=== PATIENT | male | born 1970 | race Hispanic/Latino ===

== ENCOUNTER 2024-02-02 22:45 | Inpatient (IN) | payer OTHER ==
[~2024-02-02] VITALS: Ht 165.1 cm; Wt 80.7 kg
[2024-02-03] VITALS (10 sets, daily range): BP systolic 109–137; BP diastolic 67–80; PULSE 69–87; RESP 16–20; TEMP 97.5–98.7; O2SAT 95–99
[2024-02-03] MEDS ORDERED: ALBUMIN (HUMAN) 25% 50 ML IV ONE (09:58)
[2024-02-03 10:57] LABS: HEMATOCRIT 46.8 % (42-54); MEAN CORPUSCULAR HEMOGLOBIN 29.8 pg (27.0-33.0); MEAN CORPUSCULAR VOLUME 87.8 fL (79-99); RED BLOOD CELL COUNT(AUTO) 5.33 MIL/uL (4.50-6.20); RED CELL DISTRIBUTION WIDTH 12.8 % (11.0-15.5); WHITE BLOOD COUNT (AUTO) 5.8 K/uL (4.8-10.8)
[2024-02-03 11:05] LABS: HEMOGLOBIN A1C 8.2 % (4.0-6.0)
[2024-02-03 11:12] LABS: ALBUMIN 3.7 g/dL (3.5-5.0); BILIRUBIN,TOTAL 0.4 mg/dL (0.2-1.0); CREATININE 0.8 mg/dL (0.5-1.3); POTASSIUM 4.2 mmol/L (3.5-5.1); TOTAL PROTEIN, SERUM 7.7 g/dL (6.0-8.3)
[2024-02-03 11:19] LABS: INR 1.02 (0.85-1.15)
[2024-02-03 11:20] LABS: PARTIAL THROMBOPLASTIN TIME 29.3 SEC (26.3-35.5)
[2024-02-03 11:40] LABS: ABG BASE EXCESS -0.2 mmol/L (-2.0-3.0); ABG HCO3 24.5 mmol/L (21.0-28.0); ABG OXYGEN SATURATION 95.4 % (94.0-98.0); ABG PCO2 40 mmHg (35-48); ABG PH 7.402 (7.350-7.450); PO2, ARTERIAL BG 76.7 mmHg (83.0-108.0); VENT MODE, BG RA (ROOM AIR)
[2024-02-03] MEDS ORDERED: acetaMINOPHEN 650 MG SUPPOSITORY RC PRN (12:30)
[2024-02-03] MEDS ORDERED: LACTULOSE 20 GM/30 ML UDCUP PO PRN (12:30)
[2024-02-03] MEDS ORDERED: LAbetaLOL 20MG SYG IV PRN (12:30)
[2024-02-03] MEDS ORDERED: ondanSETRON 4MG INJ IVP PRN (12:30)
[2024-02-03] MEDS ORDERED: hydrALAZine 20MG/ML VIAL IV PRN (12:30)
[2024-02-03] MEDS ORDERED: cloNIDine HCL 0.1 MG TABLET PO PRN (12:30)
[2024-02-03] MEDS: INSULIN humuLIN R 100 UNIT/ML 3ML SQ SCH (16:48)
[2024-02-03] MEDS: IpraTROPium 0.5 MG/2.5 ML INH IH SCH (18:33)
[2024-02-03] MEDS: metoPROLOL tartRATE 25 MG TAB PO SCH (20:38)
[2024-02-03] MEDS: atorVAStatin 40 MG TABLET PO SCH (20:38)
[2024-02-04] VITALS (73 sets, daily range): BP systolic 94–166; BP diastolic 36–89; PULSE 69–100; RESP 6–21; TEMP 97.3–99; O2SAT 96–99
[2024-02-04 03:43] LABS: MEAN CORPUSCULAR HEMOGLOBIN 29.7 pg (27.0-33.0); MEAN CORPUSCULAR HGB CONC 33.7 g/dL (32.0-36.0); MEAN CORPUSCULAR VOLUME 88.1 fL (79-99); RED BLOOD CELL COUNT(AUTO) 5.22 MIL/uL (4.50-6.20); RED CELL DISTRIBUTION WIDTH 12.6 % (11.0-15.5); WHITE BLOOD COUNT (AUTO) 7.8 K/uL (4.8-10.8)
[2024-02-04 03:56] LABS: MAGNESIUM 2.3 mg/dL (1.80-2.40); PHOSPHORUS 4.1 mg/dL (2.5-4.9); POTASSIUM 4.5 mmol/L (3.5-5.1)
[2024-02-04] MEDS ORDERED: aminoCAProic ACID 5,000MG VIAL 15,000 MG in 0.9% NACL 500ML IV.SOLN 420 ML IV PRN (07:00)
[2024-02-04] MEDS ORDERED: NOREPINEPHRIN 8MG/250ML NS 250 ML IV PRN ×2 (07:00→08:30)
[2024-02-04] MEDS ORDERED: EPINEPHrine PF 1MG (1:1,000) 10 MG in 0.9% NACL 250ML 240 ML IV PRN ×2 (07:00→08:00)
[2024-02-04] MEDS ORDERED: PAPAVERINE HCL 30 MG/ML 2ML VIAL ONE (07:17)
[2024-02-04] MEDS ORDERED: ceFAZolin SODIUM 1 GM VIAL ONE (07:17)
[2024-02-04] MEDS ORDERED: HEParin-NS 1,000 UNIT/500 ML 500 ML IV ONE (07:17)
[2024-02-04] MEDS ORDERED: NITROGLYCERIN 50MG/D5W 250ML 1 BOT ONE (07:23)
[2024-02-04] MEDS: 0.9%NACL 1000ML 1,000 ML IV ONE (07:49)
[2024-02-04] MEDS: ceFAZolin SODIUM 2 GM VIAL ONE (07:49)
[2024-02-04] MEDS ORDERED: 0.9%NACL 10ML VIAL IVP PRN (08:00)
[2024-02-04] MEDS ORDERED: morPHINE 2 MG SYG IV PRN (08:00)
[2024-02-04] MEDS ORDERED: DEXTROSE 50%-WATER 50 ML DISP.SYRIN IV PRN (08:00)
[2024-02-04] MEDS ORDERED: GLUCAGON 1MG KIT 1 MG ML IM PRN (08:00)
[2024-02-04] MEDS ORDERED: poTASSium PHOS 15 mMOL+NS250ML 250 ML IV PRN (08:00)
[2024-02-04] MEDS ORDERED: NOREPINEPHRINE BITARTRATE 8 MG in DEXTROSE 5%-WATER 250 ML IV PRN (08:00)
[2024-02-04] MEDS ORDERED: ALBUMIN (HUMAN) 5% 250 ML IV PRN (08:00)
[2024-02-04] MEDS ORDERED: acetaMINOPHEN 650 MG SUPPOSITORY RC PRN (08:00)
[2024-02-04] MEDS ORDERED: NITROGLYCERIN 50MG/D5W 250ML 250 BOT IV SCH (08:00)
[2024-02-04] MEDS ORDERED: acetaMINOPHEN 325 MG TAB PO PRN ×2 (08:00)
[2024-02-04] MEDS ORDERED: proPOFol 1000 MG/100 ML 100 ML IV PRN (08:00)
[2024-02-04] MEDS ORDERED: dexmedeTOMIDine 400MCG/NS100ML IV SCH (08:00)
[2024-02-04] MEDS ORDERED: traMADol HCL 50 MG TABLET PO PRN (08:00)
[2024-02-04] MEDS ORDERED: MAGNESIUM 2GM PREMIX 50ML 50 ML IV PRN (08:00)
[2024-02-04] MEDS ORDERED: 0.9% NACL 500ML IV.SOLN 500 ML IV SCH (08:00)
[2024-02-04] MEDS ORDERED: MAGNESIUM HYDROXIDE 30 ML/UDCUP PO PRN (08:00)
[2024-02-04] MEDS ORDERED: aminoCAProic ACID 5,000MG VIAL 15,000 MG in 0.9% NACL 250ML 250 ML IV SCH (08:00)
[2024-02-04] MEDS ORDERED: morPHINE 4 MG SYG IV PRN (08:00)
[2024-02-04] MEDS ORDERED: PROTamine SULFate 10 MG/ML 25ML VIAL IV ONE (08:18)
[2024-02-04] MEDS ORDERED: NOREPINEPHRINE BITARTRATE 1 MG/1 ML ML IV ONE (08:19)
[2024-02-04] MEDS ORDERED: EPINEPHrine PF 1MG (1:1,000) 1 MG/ML AMP ONE (08:19)
[2024-02-04] MEDS ORDERED: proPOFol 10 MG/ML 20ML VIAL IV ONE (08:19)
[2024-02-04] MEDS ORDERED: HEParin 10,000 UNIT/10ML (1,000 UNIT/ML) VIAL ONE ×2 (08:19→08:42)
[2024-02-04] MEDS ORDERED: FENTanyl CITRate PF 50 MCG/1 ML 20ML VIAL IJ ONE (08:19)
[2024-02-04] MEDS ORDERED: LIDOCAINE PF 100MG/5ML (2%) SYRINGE 5ML ONE (08:19)
[2024-02-04] MEDS ORDERED: GLYCOPYRROLATE 0.2 MG/ML 5 ML VIAL ONE (08:19)
[2024-02-04] MEDS ORDERED: SODIUM BICARB 50MEQ 50ML VIAL 200 ML ONE (08:19)
[2024-02-04] MEDS ORDERED: ketaMINE 50MG/ML SYRINGE 50 MG/ML DISP.SYRIN ONE ×2 (08:20→11:00)
[2024-02-04] MEDS ORDERED: rocuRONium bROMide 10MG/1ML 5ML VL ONE (08:20)
[2024-02-04] MEDS ORDERED: MIDAZOLAM HCL 1 MG/ML 2ML VIAL ONE ×2 (08:20→11:00)
[2024-02-04] MEDS: ceFAZolin SODIUM 2 GM VIAL IVPB ONE (08:35)
[2024-02-04] MEDS ORDERED: DELNIDO FORMULA 2 BAG IV ONE (08:43)
[2024-02-04] MEDS ORDERED: ENOXAPARIN SODIUM 40 MG/0.4 ML SYRINGE SQ SCH (09:00)
[2024-02-04] MEDS ORDERED: PANTOPrazole 40 MG TAB DR PO SCH (09:00)
[2024-02-04] MEDS ORDERED: LISINOPRIL 2.5 MG TABLET PO SCH (09:00)
[2024-02-04 09:23] LABS: ABG BASE EXCESS -3.8 mmol/L (-2.0-3.0); ABG OXYGEN SATURATION 99.3 % (94.0-98.0); ABG PCO2 43 mmHg (35-48); ABG PH 7.332 (7.350-7.450); CARBON MONOXIDE 0.6 % (0.5-1.5); DEVICE COMMENT 1; HHb 0.7
[2024-02-04 10:28] LABS: ABG BASE EXCESS -4.3 mmol/L (-2.0-3.0); ABG HCO3 20.6 mmol/L (21.0-28.0); ABG OXYGEN SATURATION 97.6 % (94.0-98.0); ABG PCO2 37 mmHg (35-48); ABG PH 7.361 (7.350-7.450); CARBON MONOXIDE 0.3 % (0.5-1.5); DEVICE COMMENT 2; HHb 2.4; PO2, ARTERIAL BG 113.6 mmHg (83.0-108.0)
[2024-02-04] MEDS ORDERED: AMIOdarone 150MG VIAL ONE (11:01)
[2024-02-04 11:08] LABS: ABG BASE EXCESS -1.4 mmol/L (-2.0-3.0); ABG HCO3 24.3 mmol/L (21.0-28.0); ABG OXYGEN SATURATION 98.6 % (94.0-98.0); ABG PCO2 45 mmHg (35-48); ABG PH 7.353 (7.350-7.450); CARBON MONOXIDE 0.2 % (0.5-1.5); DEVICE COMMENT 3; HHb 1.4; PO2, ARTERIAL BG 190.5 mmHg (83.0-108.0)
[2024-02-04 11:33] LABS: ABG BASE EXCESS -4.6 mmol/L (-2.0-3.0); ABG HCO3 21.9 mmol/L (21.0-28.0); ABG OXYGEN SATURATION 98.9 % (94.0-98.0); ABG PCO2 46 mmHg (35-48); ABG PH 7.296 (7.350-7.450); CARBON MONOXIDE 0.3 % (0.5-1.5); DEVICE COMMENT 4; HHb 1.1
[2024-02-04 12:25] LABS: ABG BASE EXCESS -1.8 mmol/L (-2.0-3.0); ABG HCO3 25.1 mmol/L (21.0-28.0); ABG OXYGEN SATURATION 98.3 % (94.0-98.0); ABG PCO2 52 mmHg (35-48); ABG PH 7.305 (7.350-7.450); CARBON MONOXIDE 0.6 % (0.5-1.5); HHb 1.7; PO2, ARTERIAL BG 180.3 mmHg (83.0-108.0); VENT MODE, BG SIMV-VC PS10 (ROOM AIR)
[2024-02-04] MEDS: SODIUM BICARB 50MEQ 50ML VIAL IV PRN (12:33)
[2024-02-04 12:34] LABS: HEMATOCRIT 36.9 % (42-54); MEAN CORPUSCULAR HEMOGLOBIN 30.3 pg (27.0-33.0); MEAN CORPUSCULAR HGB CONC 34.7 g/dL (32.0-36.0); MEAN CORPUSCULAR VOLUME 87.4 fL (79-99); RED BLOOD CELL COUNT(AUTO) 4.22 MIL/uL (4.50-6.20); RED CELL DISTRIBUTION WIDTH 12.9 % (11.0-15.5); WHITE BLOOD COUNT (AUTO) 16.9 K/uL (4.8-10.8)
[2024-02-04] MEDS: PoTASSium chloRIDE 20MEQ/100ML 100 ML IV PRN (12:34)
[2024-02-04] MEDS: ASPIRIN 81MG CHEW TAB PO SCH (12:42)
[2024-02-04] MEDS: FAMOTIDINE 20MG VIAL IV SCH (12:42)
[2024-02-04] MEDS: 0.9%NACL 1000ML 1,000 ML IV SCH (12:45)
[2024-02-04 12:46] LABS: INR 1.11 (0.85-1.15); PROTHROMBIN TIME 11.9 SEC (9.6-11.6)
[2024-02-04] MEDS: acetaMINOPHEN 1,000 MG/100 ML VIAL IV SCH (12:46)
[2024-02-04] MEDS: ASPIRIN 81MG CHEW TAB NG ONE (12:47)
[2024-02-04] MEDS: ceFAZolin SODIUM 2 GM VIAL IVPB SCH (12:47)
[2024-02-04] MEDS: ceFAZolin SODIUM 2 GM VIAL IVP SCH (13:00)
[2024-02-04] MEDS: INSULIN REGULAR, HUMAN 3ML 100 UNIT in 0.9%NACL 100ML 99 ML IV SCH (13:00)
[2024-02-04 13:13] LABS: MAGNESIUM 3.4 mg/dL (1.80-2.40); POTASSIUM 3.7 mmol/L (3.5-5.1)
[2024-02-04 13:30] LABS: ABG BASE EXCESS 0.1 mmol/L (-2.0-3.0); ABG HCO3 25.8 mmol/L (21.0-28.0); ABG OXYGEN SATURATION 98.7 % (94.0-98.0); ABG PCO2 46 mmHg (35-48); ABG PH 7.366 (7.350-7.450); CARBON MONOXIDE 0.4 % (0.5-1.5); HHb 1.3; PO2, ARTERIAL BG 277.7 mmHg (83.0-108.0); VENT MODE, BG SIMV-VC PS10 (ROOM AIR)
[2024-02-04 14:39] LABS: ABG BASE EXCESS -1.8 mmol/L (-2.0-3.0); ABG HCO3 24.1 mmol/L (21.0-28.0); ABG OXYGEN SATURATION 97.8 % (94.0-98.0); ABG PCO2 45 mmHg (35-48); ABG PH 7.347 (7.350-7.450); CARBON MONOXIDE 0.6 % (0.5-1.5); HHb 2.2; PO2, ARTERIAL BG 132.8 mmHg (83.0-108.0); VENT MODE, BG SIMV (ROOM AIR)
[2024-02-04 15:32] LABS: ABG BASE EXCESS 0.1 mmol/L (-2.0-3.0); ABG HCO3 25.9 mmol/L (21.0-28.0); ABG OXYGEN SATURATION 97.5 % (94.0-98.0); ABG PCO2 46 mmHg (35-48); ABG PH 7.366 (7.350-7.450); CARBON MONOXIDE 0.9 % (0.5-1.5); HHb 2.5; VENT MODE, BG SIMV (ROOM AIR)
[2024-02-04 15:35] LABS: ABG BASE EXCESS -0.6 mmol/L (-2.0-3.0); ABG HCO3 24.8 mmol/L (21.0-28.0); ABG OXYGEN SATURATION 97.7 % (94.0-98.0); ABG PCO2 44 mmHg (35-48); ABG PH 7.371 (7.350-7.450); CARBON MONOXIDE 0.7 % (0.5-1.5); HHb 2.3; VENT MODE, BG SIMV (ROOM AIR)
[2024-02-04 16:24] LABS: ABG BASE EXCESS -1.8 mmol/L (-2.0-3.0); ABG HCO3 23.1 mmol/L (21.0-28.0); ABG OXYGEN SATURATION 97.6 % (94.0-98.0); ABG PCO2 40 mmHg (35-48); CARBON MONOXIDE 0.7 % (0.5-1.5); CPAP, BG 5 cm H2O; DEVICE COMMENT ALINE; HHb 2.4; PO2, ARTERIAL BG 116.2 mmHg (83.0-108.0); VENT MODE, BG CPAP 5 (ROOM AIR)
[2024-02-04] MEDS: traMADol HCL 50 MG TABLET PO PRN (16:51)
[2024-02-04 17:37] LABS: ABG BASE EXCESS 0.8 mmol/L (-2.0-3.0); ABG HCO3 27.1 mmol/L (21.0-28.0); ABG OXYGEN SATURATION 96.6 % (94.0-98.0); ABG PCO2 50 mmHg (35-48); ABG PH 7.352 (7.350-7.450); CARBON MONOXIDE 0.4 % (0.5-1.5); HHb 3.4; PO2, ARTERIAL BG 96.5 mmHg (83.0-108.0); VENT MODE, BG CAFM (ROOM AIR)
[2024-02-04] MEDS: doCUSate SODIUM 100 MG CAP PO SCH (20:28)
[2024-02-04] MEDS: ondanSETRON 4MG INJ IV PRN (22:02)
[2024-02-04 23:16] LABS: ABG BASE EXCESS 0.5 mmol/L (-2.0-3.0); ABG HCO3 25.7 mmol/L (21.0-28.0); ABG OXYGEN SATURATION 96.9 % (94.0-98.0); ABG PCO2 43 mmHg (35-48); ABG PH 7.391 (7.350-7.450); CARBON MONOXIDE 0.8 % (0.5-1.5); HHb 3.1; PO2, ARTERIAL BG 96.2 mmHg (83.0-108.0); VENT MODE, BG AM,40 (ROOM AIR)
[2024-02-04] MEDS: IpraTROPium 0.5 MG/2.5 ML INH IH SCH (23:21)
[2024-02-05] VITALS (94 sets, daily range): BP systolic 86–155; BP diastolic 43–76; PULSE 79–95; RESP 12–35; TEMP 98.1–99.3; O2SAT 94–98
[2024-02-05] MEDS: CALCIUM GLUC 1GM 1 GM in 0.9%NACL 50ML 50 ML IV PRN (04:39)
[2024-02-05 04:44] LABS: HEMATOCRIT 37.4 % (42-54); MEAN CORPUSCULAR HEMOGLOBIN 29.7 pg (27.0-33.0); MEAN CORPUSCULAR HGB CONC 33.2 g/dL (32.0-36.0); MEAN CORPUSCULAR VOLUME 89.7 fL (79-99); RED BLOOD CELL COUNT(AUTO) 4.17 MIL/uL (4.50-6.20); RED CELL DISTRIBUTION WIDTH 13.2 % (11.0-15.5); WHITE BLOOD COUNT (AUTO) 13.8 K/uL (4.8-10.8)
[2024-02-05 04:49] LABS: CREATININE 0.8 mg/dL (0.5-1.3); MAGNESIUM 2.2 mg/dL (1.80-2.40); PHOSPHORUS 3.5 mg/dL (2.5-4.9); POTASSIUM 3.9 mmol/L (3.5-5.1)
[2024-02-05 04:50] LABS: INR 1.09 (0.85-1.15); PROTHROMBIN TIME 11.7 SEC (9.6-11.6)
[2024-02-05 04:51] LABS: PARTIAL THROMBOPLASTIN TIME 29.4 SEC (26.3-35.5)
[2024-02-05] MEDS: furoSEMIDE 20MG VIAL IV SCH (08:46)
[2024-02-05] MEDS: acetaMINOPHEN 1,000 MG/100 ML VIAL IV SCH (16:31)
[2024-02-05] MEDS: acetaMINOPHEN 1,000 MG/100 ML VIAL IV ONE (16:31)
[2024-02-06] VITALS (34 sets, daily range): BP systolic 88–160; BP diastolic 45–101; PULSE 83–99; RESP 15–21; TEMP 98.4–99.3; O2SAT 93–96
[2024-02-06 05:10] LABS: HEMATOCRIT 38.3 % (42-54); MEAN CORPUSCULAR HEMOGLOBIN 29.6 pg (27.0-33.0); MEAN CORPUSCULAR HGB CONC 32.9 g/dL (32.0-36.0); MEAN CORPUSCULAR VOLUME 90.1 fL (79-99); RED BLOOD CELL COUNT(AUTO) 4.25 MIL/uL (4.50-6.20); RED CELL DISTRIBUTION WIDTH 12.8 % (11.0-15.5); WHITE BLOOD COUNT (AUTO) 14.6 K/uL (4.8-10.8)
[2024-02-06 05:37] LABS: CREATININE 0.8 mg/dL (0.5-1.3); POTASSIUM 4.1 mmol/L (3.5-5.1)
[2024-02-06] MEDS: IpraTROPium 0.5 MG/2.5 ML INH IH ONE (06:24)
[2024-02-06] MEDS: INSULIN humuLIN R 100 UNIT/ML 3ML SQ SCH (07:06)
[2024-02-06] MEDS: furoSEMIDE 20 MG TABLET PO SCH (07:56)
[2024-02-06] MEDS: metoPROLOL tartRATE 25 MG TAB PO SCH (09:00)
[2024-02-06 11:25] LABS: COVID19 (SARS ANTIGEN RAPID) PRESUMPTIVE NEGATIVE (NEGATIVE)
[2024-02-06] MEDS: acetaMINOPHEN 325 MG TAB PO PRN (11:32)
[2024-02-06 11:33] LABS: INFLUENZA TYPE A Negative For Type A (NEGATIVE); INFLUENZA TYPE B Negative For Type B (NEGATIVE)
[2024-02-06] MEDS: ZOSYN 3.375GM +NS 50ML IV SCH (13:27)
[2024-02-07] VITALS (19 sets, daily range): BP systolic 96–125; BP diastolic 59–76; PULSE 80–100; RESP 18–20; TEMP 98.2–99.2; O2SAT 95–98
[2024-02-07 03:45] LABS: HEMATOCRIT 37.2 % (42-54); MEAN CORPUSCULAR HEMOGLOBIN 29.5 pg (27.0-33.0); MEAN CORPUSCULAR HGB CONC 33.3 g/dL (32.0-36.0); MEAN CORPUSCULAR VOLUME 88.6 fL (79-99); RED BLOOD CELL COUNT(AUTO) 4.2 MIL/uL (4.50-6.20); RED CELL DISTRIBUTION WIDTH 12.6 % (11.0-15.5); WHITE BLOOD COUNT (AUTO) 10.6 K/uL (4.8-10.8)
[2024-02-07 04:09] LABS: CREATININE 0.9 mg/dL (0.5-1.3); POTASSIUM 3.8 mmol/L (3.5-5.1)
[2024-02-08] VITALS (11 sets, daily range): BP systolic 97–124; BP diastolic 53–69; PULSE 68–94; RESP 18–20; TEMP 97.9–98.5; O2SAT 94–98
[2024-02-08 03:30] LABS: HEMATOCRIT 36.9 % (42-54); MEAN CORPUSCULAR HEMOGLOBIN 29.3 pg (27.0-33.0); MEAN CORPUSCULAR HGB CONC 33.1 g/dL (32.0-36.0); MEAN CORPUSCULAR VOLUME 88.5 fL (79-99); RED BLOOD CELL COUNT(AUTO) 4.17 MIL/uL (4.50-6.20); RED CELL DISTRIBUTION WIDTH 12.4 % (11.0-15.5); WHITE BLOOD COUNT (AUTO) 8.3 K/uL (4.8-10.8)
[2024-02-08 03:38] LABS: CREATININE 0.9 mg/dL (0.5-1.3); POTASSIUM 3.5 mmol/L (3.5-5.1)
[2024-02-08] MEDS: ENOXAPARIN SODIUM 30 MG/0.3 ML SQ SCH (08:43)
[2024-02-08] MEDS: metoPROLOL tartRATE 25 MG TAB PO SCH (08:43)
[2024-02-09] VITALS (7 sets, daily range): BP systolic 101–113; BP diastolic 65–70; PULSE 83–93; RESP 16–20; TEMP 98.3–98.7; O2SAT 95–98
[2024-02-09 03:38] LABS: HEMATOCRIT 36.4 % (42-54); MEAN CORPUSCULAR HEMOGLOBIN 29.5 pg (27.0-33.0); MEAN CORPUSCULAR VOLUME 89.4 fL (79-99); RED BLOOD CELL COUNT(AUTO) 4.07 MIL/uL (4.50-6.20); RED CELL DISTRIBUTION WIDTH 12.2 % (11.0-15.5); WHITE BLOOD COUNT (AUTO) 7.1 K/uL (4.8-10.8)
[2024-02-09 03:47] LABS: CREATININE 0.9 mg/dL (0.5-1.3); POTASSIUM 3.2 mmol/L (3.5-5.1)
[2024-02-09] MEDS: PoTASSium chloRIDE 20MEQ ER 20 MEQ ERTAB PO ONE (04:45)
[2024-02-09] MEDS: LACTULOSE 20 GM/30 ML UDCUP PO PRN (08:10)
[2024-02-09] MEDS ORDERED: METO25 PO (09:04)
[2024-02-09] MEDS ORDERED: ATOR40TA69 PO (09:04)
[2024-02-09] MEDS ORDERED: LISI5TAB21 PO (09:04)
[2024-02-09] MEDS ORDERED: FURO20TA6 PO (09:04)
[2024-02-09] MEDS ORDERED: ASPI-1005 PO (09:04)
[2024-02-09] MEDS: LISINOPRIL 5 MG TABLET PO SCH (09:40)
== END 2024-02-09 11:35 | disposition home or self-care (01) | DRG 235 ==
LOC: 2AH 02-03 09:30 → 2CV 02-04 07:27 → 2CH 02-05 14:17 → 2DH 02-06 14:09
PROVIDERS: ADMIT Internal Medicine Critical Care Medicine; ATTEND Internal Medicine Critical Care Medicine
PROC: 02L70CK Occlusion of Left Atrial Appendage with Extraluminal Device, Open Approach (ICD-10-PCS; 2024-02-04)
PROC: 3E083GC Introduction of Other Therapeutic Substance into Heart, Percutaneous Approach (ICD-10-PCS; 2024-02-04)
PROC: 30233R1 Transfusion of Nonautologous Platelets into Peripheral Vein, Percutaneous Approach (ICD-10-PCS; 2024-02-04)
PROC: 05HY33Z Insertion of Infusion Device into Upper Vein, Percutaneous Approach (ICD-10-PCS; 2024-02-04)
PROC: 02100Z9 Bypass Coronary Artery, One Artery from Left Internal Mammary, Open Approach (ICD-10-PCS; principal; 2024-02-04 08:19)
PROC: 021009W Bypass Coronary Artery, One Artery from Aorta with Autologous Venous Tissue, Open Approach (ICD-10-PCS; 2024-02-04 08:19)
PROC: 06BQ4ZZ Excision of Left Saphenous Vein, Percutaneous Endoscopic Approach (ICD-10-PCS; 2024-02-04 08:19)
PROC: 5A1221Z Performance of Cardiac Output, Continuous (ICD-10-PCS; 2024-02-04 08:19)
DX: I25.10 Atherosclerotic heart disease of native coronary artery without angina pectoris (principal); J18.9 Pneumonia, unspecified organism; J96.90 Respiratory failure, unspecified, unspecified whether with hypoxia or hypercapnia; D62 Acute posthemorrhagic anemia; E87.0 Hyperosmolality and hypernatremia; J98.11 Atelectasis; Z20.822 Contact with and (suspected) exposure to COVID-19; E83.39 Other disorders of phosphorus metabolism; E11.65 Type 2 diabetes mellitus with hyperglycemia; E11.51 Type 2 diabetes mellitus with diabetic peripheral angiopathy without gangrene; I10 Essential (primary) hypertension; I11.9 Hypertensive heart disease without heart failure; I95.9 Hypotension, unspecified; E78.00 Pure hypercholesterolemia, unspecified; D72.829 Elevated white blood cell count, unspecified; E66.9 Obesity, unspecified; E87.70 Fluid overload, unspecified; E83.52 Hypercalcemia; Z79.899 Other long term (current) drug therapy; Z87.891 Personal history of nicotine dependence
CPT/HCPCS: 36415; 36600; 71045; 80048; 80053; 80061; 82330; 82435; 82803; 82947; 82948; 83036; 83605; 83735; 83880; 84100; 84132; 84145; 84295; 85018; 85027; 85347; 85384; 85610; 85730; 86850; 86900; 86901; 86923; 87426; 87641; 87804; 93005; 93312; 93325; 94002; 94010; 94150; 94640; 94664; 94760; A7048; C1729; G0378; J0171; J0282; J0690; J1644; J1650; J1815; J1940; J2003; J2150; J2250; J2371; J2405; J2440; J2543; J2704; J2720; J3010; J3475; J3480; J3490; J7030; J7040; P9034; P9047; A4216; A4222; A4223; A4315; A4351; A4452; A4600; A4605; A4649; A4663; A6204; A6219; A7040; C1713; C1776; C1887